=== PATIENT | female | born 1955 | race Caucasian/White ===

== ENCOUNTER 2017-02-02 10:09 | Emergency (ER) | payer OTHER, BC ==
[2017-02-02 10:15] VITALS: BP 133/95; PULSE 70; TEMP 98.1; BMI 26.5
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
[2017-02-02] MEDS ORDERED: IBUPROFEN 600 MG TABLET (FP) PO ONE ×2 (11:36→11:41)
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
== END 2017-02-02 11:48 | disposition home or self-care (01) ==
LOC: JER 10:09
DX: G44.309 Post-traumatic headache, unspecified, not intractable (principal); V43.52XA Car driver injured in collision with other type car in traffic accident, initial encounter; Y92.414 Local residential or business street as the place of occurrence of the external cause; Y93.89 Activity, other specified
CPT/HCPCS: 99281-25